=== PATIENT | female | born 1935 | race Caucasian/White ===

== ENCOUNTER 2016-08-22 12:45 | Outpatient (CLI) | payer MEDICARE, OTHER | END 2016-08-22 12:46 | disposition home or self-care (01) | DX: R13.10 Dysphagia, unspecified (principal); I10 Essential (primary) hypertension; E03.9 Hypothyroidism, unspecified ==

== ENCOUNTER 2016-09-06 08:24 | Outpatient (CLI) | payer MEDICARE, OTHER ==
[2016-09-06] MEDS ORDERED: BARIUM SULFATE 176 GM BOTTLE PO ONE (11:37)
[2016-09-06] MEDS ORDERED: BARIUM SULFATE 135 ML BOTTLE PO ONE (11:37)
== END 2016-09-06 08:25 | disposition home or self-care (01) ==
DX: K22.8 Other specified diseases of esophagus (principal); K44.9 Diaphragmatic hernia without obstruction or gangrene; K21.9 Gastro-esophageal reflux disease without esophagitis
CPT/HCPCS: 74246; A9270

== ENCOUNTER 2016-10-20 13:20 | Outpatient (CLI) | payer MEDICARE, OTHER | END 2016-10-20 13:21 | disposition home or self-care (01) | DX: Z12.31 Encounter for screening mammogram for malignant neoplasm of breast (principal) ==

== ENCOUNTER 2016-10-20 13:24 | Outpatient (CLI) | payer MEDICARE, OTHER | END 2016-10-20 13:25 | disposition home or self-care (01) | DX: M85.88 Other specified disorders of bone density and structure, other site (principal) ==

== ENCOUNTER 2017-01-23 14:46 | Outpatient (CLI) | payer MEDICARE, OTHER ==
[2017-01-23 20:54] LABS: ALBUMIN/GLOBULIN RATIO 1.3 (1.0-2.2); BILIRUBIN,TOTAL 0.6 mg/dL (0.2-1.0); CALCIUM 8.5 mg/dL (8.5-10.3); CREATININE 0.7 mg/dL (0.4-1.0); POTASSIUM 4.1 mmol/L (3.5-5.0); TOTAL PROTEIN 6.6 g/dL (6.7-8.2)
== END 2017-01-23 14:47 | disposition home or self-care (01) ==
LOC: LAB.WCP 14:46
PROVIDERS: ATTEND Family Medicine
DX: F03.90 Unspecified dementia, unspecified severity, without behavioral disturbance, psychotic disturbance, mood disturbance, and anxiety (principal); I10 Essential (primary) hypertension; F32.9 Major depressive disorder, single episode, unspecified; E03.9 Hypothyroidism, unspecified
CPT/HCPCS: 36415; 80053; 84443

== ENCOUNTER 2017-07-07 14:10 | Outpatient (CLI) | payer MEDICARE, OTHER ==
[2017-07-07 18:46] LABS: BASOPHILS # (AUTO) 0.1 10^3/uL (0.0-0.1); EOSINOPHILS # (AUTO) 0.2 10^3/uL (0.0-0.7); HCT - HEMATOCRIT 40.6 % (37.0-47.0); HGB - HEMOGLOBIN 13.5 g/dL (12.0-16.0); LYMPHOCYTES # (AUTO) 2.2 10^3/uL (1.5-3.5); LYMPHOCYTES % (AUTO) 42.1 %; MEAN CORPUSCULAR HEMOGLOBIN 30.6 pg (27.0-31.0); MEAN CORPUSCULAR HGB CONC 33.3 g/dL (32.0-36.0); MEAN CORPUSCULAR VOLUME 91.8 fL (81.0-99.0); MEAN PLATELET VOLUME 8.9 fL (7.9-10.8); MONOCYTES # (AUTO) 0.5 10^3/uL (0.0-1.0); MONOCYTES % (AUTO) 8.9 %; NEUTROPHILS # (AUTO) 2.2 10^3/uL (1.5-6.6); RED BLOOD COUNT 4.42 10^6/uL (4.20-5.40); RED CELL DISTRIBUTION WIDTH 13.2 % (12.0-15.0); UNCORRECTED WHITE BLOOD COUNT 5.1 x10^3/uL; WHITE BLOOD COUNT 5.1 x10^3/uL (4.8-10.8)
[2017-07-07 19:05] LABS: ALBUMIN/GLOBULIN RATIO 1.2 (1.0-2.2); BILIRUBIN,TOTAL 0.6 mg/dL (0.2-1.0); BUN - BLOOD UREA NITROGEN 17 mg/dL (6-20); CALCIUM 8.8 mg/dL (8.5-10.3); CARBON DIOXIDE - CO2 26 mmol/L (21-32); CHLORIDE 106 mmol/L (101-111); CHOL/HDL RATIO 3.3 (<4.4); CHOLESTEROL 195 mg/dL; CREATININE 0.8 mg/dL (0.4-1.0); GFR - MDRD 69 (>89); GLUCOSE 93 mg/dL (70-100); HDL CHOLESTEROL 59 mg/dL; LDL/HDL RATIO 1.7 (<4.4); POTASSIUM 4.3 mmol/L (3.5-5.0); SODIUM 139 mmol/L (135-145); TOTAL PROTEIN 6.7 g/dL (6.7-8.2); TRIGLYCERIDES 192 mg/dL; VLDL CHOLESTEROL 38 mg/dL
== END 2017-07-07 14:11 | disposition home or self-care (01) ==
LOC: LAB.WCP 14:10
PROVIDERS: ATTEND Family Medicine
DX: I10 Essential (primary) hypertension (principal); Z13.220 Encounter for screening for lipoid disorders; E03.9 Hypothyroidism, unspecified
CPT/HCPCS: 36415; 80053; 80061; 84443; 85025

== ENCOUNTER 2017-10-25 09:42 | Outpatient (CLI) | payer MEDICARE, OTHER ==
--- NOTE | 2017-10-26 09:39 | DEXA Report ---
DEXA SCAN: 10/25/2017 CLINICAL INDICATION: Postmenopausal. TECHNIQUE: Dual energy x-ray absorptiometry (DXA) was performed on a [employer] system. Regions measured are the AP spine, femoral neck, and, if needed, forearm. COMPARISON: 10/20/2016. In accordance with the International Society for Clinical Densitometry (ISCD) guidelines, data from previous exams may be reanalyzed using current recommendations and techniques. This is done to allow a more accurate basis for comparison with the current study. FINDINGS: The data for the lumbar spine is as follows: REGION BMD (g/cm/cm) T-SCORE Z-SCORE L1 1.386 2.1 3.6 L2 1.251 1.3 2.7 L3 1.228 0.2 1.7 L4 1.738 4.5 5.9 TOTAL 1.430 2.1 3.5 NOTE: All evaluable vertebrae are used for classification. The data for the hip is as follows: REGION BMD (g/cm/cm) T-SCORE Z-SCORE Neck 0.804 -1.7 0.3 TOTAL 0.826 -1.4 0.4 NOTE: The femoral neck or total proximal femur, whichever is lowest, is used for classification. DEXA RESULTS SUMMARY: Spine SCAN DATE AGE BMD T-SCORE BMD CHANGE VS BASELINE BMD CHANGE VS PREVIOUS 10/25/[age] 1.430 --- -0.075* -5.0* 10/20/2016 [age] 1[age]505 --- --- --- * Denotes significant change at the 95% confidence level. Denotes dissimilar scan types or analysis methods. DEXA RESULTS SUMMARY: Total hip SCAN DATE AGE BMD T-SCORE BMD CHANGE VS BASELINE BMD CHANGE VS PREVIOUS 10/25/2017 82.2 0.826 --- 0.020 2.5 10/20/2016 [age] 0.806 --- --- --- * Denotes significant change at the 95% confidence level. Denotes dissimilar scan types or analysis methods. IMPRESSION 1. THE WHO CLASSIFICATION BASED ON THE INTERNATIONAL REFERENCE STANDARD IS OSTEOPENIA. THE FRACTURE RISK IS INCREASED. 2. THERE HAS BEEN STATISTICALLY SIGNIFICANT INTERVAL DECREASE IN BONE MINERAL DENSITY OF THE LUMBAR SPINE FROM 10/20/2016. NO STATISTICALLY SIGNIFICANT INTERVAL CHANGE IN BONE MINERAL DENSITY OF THE LEFT HIP. RECOMMENDATION: Patients with diagnosis of osteoporosis or osteopenia should have regular bone mineral density assessment. For those eligible for Medicare, routine testing is allowed once every 2 years. Testing frequency can be increased for patients who have rapidly progressing disease or for those who are receiving medical therapy to restore bone mass. COMMENT: World Health Organization (WHO) definitions for osteoporosis and osteopenia: NORMAL BMD: T-score at 1.0 or higher, fracture risk is low. OSTEOPENIA BMD: T-score between 1.0 and -2.5, fracture risk is increased. OSTEOPOROSIS BMD: T-score at 2.5 or lower, fracture risk high. National Osteoporosis Foundation recommends: 1. Obtain adequate dietary calcium (at least 1200 mg per day) and vitamin D (400 -800 international units per day). 2. Participate, as appropriate, in regular weightbearing and muscle- strengthening exercise. 3. Avoid tobacco use and reduce alcohol and caffeine intake. 4. For more detailed information see the website at www.NOF.org. MTDD
== END 2017-10-25 09:43 | disposition home or self-care (01) ==
LOC: DI 09:42
PROVIDERS: ATTEND Family Medicine
DX: M85.88 Other specified disorders of bone density and structure, other site (principal)
CPT/HCPCS: 77080

== ENCOUNTER 2017-10-25 09:42 | Outpatient (CLI) | payer MEDICARE, OTHER ==
--- NOTE | 2017-10-26 13:29 | Mammography Report ---
DIGITAL SCREENING MAMMOGRAM: 10/25/2017 CLINICAL INDICATION: An 82-year-old with history of late childbearing for screening. COMPARISON: 09/2016, 08/2015, 06/2014, 05/2013, 04/2012, 04/2011, 04/2010. TECHNIQUE: Routine CC and MLO projections were obtained of the breasts. FINDINGS: The breasts demonstrate scattered fibroglandular densities bilaterally. Coarse and punctate, typically benign calcifications are present. No suspicious masses, clustered microcalcifications, or regions of architectural distortion are identified. IMPRESSION: BENIGN FINDINGS. RECOMMENDATION: Routine annual screening unless otherwise clinically indicated. BIRADS CATEGORY 2 - BENIGN FINDINGS. STANDARD QUALIFYING STATEMENTS: 1. This examination was reviewed with the aid of Computer-Aided Detection (CAD). 2. A negative or benign imaging report should not delay biopsy if clinically suspicious findings are present. Consider surgical consultation if warranted. More than 5% of cancers are not identified by imaging. 3. Dense breasts may obscure an underlying neoplasm. TD: 10/26/2017 13:28
== END 2017-10-25 09:43 | disposition home or self-care (01) ==
LOC: DI 09:42
PROVIDERS: ATTEND Family Medicine
DX: Z12.31 Encounter for screening mammogram for malignant neoplasm of breast (principal)
CPT/HCPCS: 77067

== ENCOUNTER 2018-03-06 08:00 | Outpatient (CLI) | payer MEDICARE, OTHER ==
[2018-03-06 19:17] LABS: ALBUMIN 3.5 g/dL (3.2-5.5); ALBUMIN/GLOBULIN RATIO 1.1 (1.0-2.2); ALKALINE PHOSPHATASE 57 IU/L (42-121); ALT ALANINE AMINOTRANSFERASE 21 IU/L (10-60); AST ASPARTATE AMINOTRANSFERASE 26 IU/L (10-42); BILIRUBIN,TOTAL 0.8 mg/dL (0.2-1.0); BUN - BLOOD UREA NITROGEN 15 mg/dL (6-20); CALCIUM 8.7 mg/dL (8.5-10.3); CARBON DIOXIDE - CO2 28 mmol/L (21-32); CHLORIDE 103 mmol/L (101-111); CHOL/HDL RATIO 3.5 (<4.4); CHOLESTEROL 173 mg/dL; CREATININE 0.7 mg/dL (0.4-1.0); GFR - MDRD 80 (>89); GLUCOSE 95 mg/dL (70-100); HDL CHOLESTEROL 50 mg/dL; LDL CHOLESTEROL,CALCULATED 99 mg/dL; SODIUM 137 mmol/L (135-145); TOTAL PROTEIN 6.7 g/dL (6.7-8.2); VLDL CHOLESTEROL 24 mg/dL
== END 2018-03-06 08:01 | disposition home or self-care (01) ==
LOC: LAB.WCP 08:00
PROVIDERS: ATTEND Family Medicine
DX: I10 Essential (primary) hypertension (principal); E03.9 Hypothyroidism, unspecified; Z13.220 Encounter for screening for lipoid disorders
CPT/HCPCS: 36415; 80053; 80061; 83721; 84443

== ENCOUNTER 2018-08-14 13:11 | Outpatient (CLI) | payer MEDICARE, OTHER | END 2018-08-14 13:12 | disposition home or self-care (01) | LOC: RT 13:11 | PROVIDERS: ATTEND Family Medicine | DX: R05 Cough (principal); J45.909 Unspecified asthma, uncomplicated | CPT/HCPCS: 94010 ==

== ENCOUNTER 2018-08-20 13:07 | Outpatient (CLI) | payer MEDICARE, OTHER | END 2018-08-20 13:08 | disposition home or self-care (01) | LOC: SC 13:07 | PROVIDERS: ATTEND Nurse Practitioner Family | DX: G47.33 Obstructive sleep apnea (adult) (pediatric) (principal) | CPT/HCPCS: 99214; G0463; 99212 ==

== ENCOUNTER 2018-08-22 08:00 | Outpatient (CLI) | payer MEDICARE, OTHER ==
[2018-08-22 12:15] LABS: BASOPHILS # (AUTO) 0.1 10^3/uL (0.0-0.1); BASOPHILS % (AUTO) 1.4 %; EOSINOPHILS # (AUTO) 0.2 10^3/uL (0.0-0.7); EOSINOPHILS % (AUTO) 3.3 %; HGB - HEMOGLOBIN 13.1 g/dL (12.0-16.0); LYMPHOCYTES # (AUTO) 1.7 10^3/uL (1.5-3.5); LYMPHOCYTES % (AUTO) 30.1 %; MEAN CORPUSCULAR HEMOGLOBIN 30.8 pg (27.0-31.0); MEAN CORPUSCULAR VOLUME 90.7 fL (81.0-99.0); MEAN PLATELET VOLUME 8.5 fL (7.9-10.8); MONOCYTES # (AUTO) 0.6 10^3/uL (0.0-1.0); MONOCYTES % (AUTO) 9.7 %; NEUTROPHILS # (AUTO) 3.2 10^3/uL (1.5-6.6); NEUTROPHILS % (AUTO) 55.5 %; PLT - PLATELET COUNT 304 10^3/uL (130-450); RED BLOOD COUNT 4.26 10^6/uL (4.20-5.40); RED CELL DISTRIBUTION WIDTH 13.6 % (12.0-15.0); WHITE BLOOD COUNT 5.8 x10^3/uL (4.8-10.8)
[2018-08-22 13:05] LABS: ALBUMIN 3.6 g/dL (3.2-5.5); ALBUMIN/GLOBULIN RATIO 1.1 (1.0-2.2); ALKALINE PHOSPHATASE 66 IU/L (42-121); ALT ALANINE AMINOTRANSFERASE 17 IU/L (10-60); AST ASPARTATE AMINOTRANSFERASE 25 IU/L (10-42); BILIRUBIN,TOTAL 0.5 mg/dL (0.2-1.0); BUN - BLOOD UREA NITROGEN 14 mg/dL (6-20); CALCIUM 8.8 mg/dL (8.5-10.3); CARBON DIOXIDE - CO2 26 mmol/L (21-32); CHLORIDE 105 mmol/L (101-111); CHOL/HDL RATIO 2.8 (<4.4); CHOLESTEROL 155 mg/dL; CREATININE 0.9 mg/dL (0.4-1.0); GFR - MDRD 60 (>89); GLUCOSE 103 mg/dL (70-100); HDL CHOLESTEROL 56 mg/dL; LDL CHOLESTEROL,CALCULATED 78 mg/dL; LDL/HDL RATIO 1.4 (<4.4); SODIUM 140 mmol/L (135-145); TOTAL PROTEIN 6.8 g/dL (6.7-8.2); VLDL CHOLESTEROL 21 mg/dL
== END 2018-08-22 23:59 | disposition home or self-care (01) ==
LOC: LAB.WCP 08:00
PROVIDERS: ATTEND Family Medicine
DX: R25.2 Cramp and spasm (principal); I10 Essential (primary) hypertension; Z13.220 Encounter for screening for lipoid disorders; F03.90 Unspecified dementia, unspecified severity, without behavioral disturbance, psychotic disturbance, mood disturbance, and anxiety; F32.9 Major depressive disorder, single episode, unspecified; E03.9 Hypothyroidism, unspecified
CPT/HCPCS: 36415; 80053; 80061; 83721; 84443; 85025

== ENCOUNTER 2018-09-22 11:11 | Outpatient (CLI) | payer MEDICARE, OTHER | END 2018-09-22 11:12 | disposition home or self-care (01) | LOC: DI 11:11 | PROVIDERS: ATTEND Family Medicine | DX: R01.1 Cardiac murmur, unspecified (principal); I34.0 Nonrheumatic mitral (valve) insufficiency | CPT/HCPCS: 93306 ==

== ENCOUNTER 2019-01-03 15:43 | Outpatient (CLI) | payer MEDICARE, OTHER ==
--- NOTE | 2019-01-04 08:42 | Mammography Report ---
Reason: SCREENING MAMMO Procedure Date: 01/03/2019 Accession Number: [id number] / [id number] Procedure: ANIYA - Screening Mammo w/Manolo CPT Code: FULL RESULT: EXAM: Screening Mammo w/Manolo DATE: 01/03/2019 4:06 PM CLINICAL HISTORY: Screening encounter. History of late childbearing. History of endometrial cancer. TECHNIQUE: (B) - Bilateral CC and MLO views were obtained. COMPARISON: 10/25/2017 through 06/24/2013. PARENCHYMAL PATTERN: (A) - The breast(s) demonstrate(s) scattered fibroglandular densities. FINDINGS: There are coarse typically benign calcifications. There are no suspicious masses, calcifications, or areas of distortion. IMPRESSION: Benign findings. BI-RADS category 2. RECOMMENDATION: (ANNUAL) - Recommend routine annual screening mammography. BI-RADS CATEGORY: (2) - Benign Findings. STANDARD QUALIFYING STATEMENTS: 1. This examination was not reviewed with the aid of Computer-Aided Detection (CAD). 2. A negative or benign imaging report should not preclude biopsy if clinically suspicious findings are present. 3. Dense breasts may obscure an underlying neoplasm. 4. This examination was reviewed with the aid of 3D breast imaging (tomosynthesis).
== END 2019-01-03 15:44 | disposition home or self-care (01) ==
LOC: DI 15:43
DX: Z12.31 Encounter for screening mammogram for malignant neoplasm of breast (principal)
CPT/HCPCS: 77063; 77067

== ENCOUNTER 2020-07-20 08:00 | Outpatient (CLI) | payer MEDICARE, OTHER ==
[2020-07-20 18:07] LABS: BASOPHILS # (AUTO) 0.1 10^3/uL (0.0-0.1); BASOPHILS % (AUTO) 1.5 %; EOSINOPHILS # (AUTO) 0.3 10^3/uL (0.0-0.7); EOSINOPHILS % (AUTO) 5.3 %; LYMPHOCYTES # (AUTO) 1.8 10^3/uL (1.5-3.5); LYMPHOCYTES % (AUTO) 30.7 %; MEAN CORPUSCULAR HEMOGLOBIN 31.1 pg (27.0-31.0); MEAN CORPUSCULAR HGB CONC 32.1 g/dL (32.0-36.0); MEAN CORPUSCULAR VOLUME 96.9 fL (81.0-99.0); MEAN PLATELET VOLUME 10.2 fL (7.9-10.8); MONOCYTES # (AUTO) 0.5 10^3/uL (0.0-1.0); NEUTROPHILS # (AUTO) 3.2 10^3/uL (1.5-6.6); PLT - PLATELET COUNT 260 10^3/uL (130-450); RED BLOOD COUNT 4.18 10^6/uL (4.20-5.40); RED CELL DISTRIBUTION WIDTH 12.5 % (12.0-15.0); WHITE BLOOD COUNT 5.9 x10^3/uL (4.8-10.8)
[2020-07-20 18:20] LABS: ALBUMIN 3.8 g/dL (3.2-5.5); ALBUMIN/GLOBULIN RATIO 1.3 (1.0-2.2); BILIRUBIN,TOTAL 0.7 mg/dL (0.2-1.0); CREATININE 0.8 mg/dL (0.4-1.0); TOTAL PROTEIN 6.7 g/dL (6.7-8.2)
== END 2020-07-20 23:59 | disposition home or self-care (01) ==
LOC: LAB.WCP 08:00
PROVIDERS: ATTEND Family Medicine
DX: I10 Essential (primary) hypertension (principal); E03.9 Hypothyroidism, unspecified
CPT/HCPCS: 36415; 80053; 84443; 85025

== ENCOUNTER 2021-01-18 08:00 | Outpatient (CLI) | payer MEDICARE, OTHER ==
[2021-01-18 18:04] LABS: BASOPHILS # (AUTO) 0.1 10^3/uL (0.0-0.1); BASOPHILS % (AUTO) 1.4 %; EOSINOPHILS # (AUTO) 0.3 10^3/uL (0.0-0.7); EOSINOPHILS % (AUTO) 5.1 %; HCT - HEMATOCRIT 40.9 % (37.0-47.0); HGB - HEMOGLOBIN 13.2 g/dL (12.0-16.0); LYMPHOCYTES # (AUTO) 1.9 10^3/uL (1.5-3.5); LYMPHOCYTES % (AUTO) 32.4 %; MEAN CORPUSCULAR HEMOGLOBIN 31.4 pg (27.0-31.0); MEAN CORPUSCULAR HGB CONC 32.3 g/dL (32.0-36.0); MEAN CORPUSCULAR VOLUME 97.1 fL (81.0-99.0); MEAN PLATELET VOLUME 10.7 fL (7.9-10.8); MONOCYTES # (AUTO) 0.6 10^3/uL (0.0-1.0); MONOCYTES % (AUTO) 10.1 %; NEUTROPHILS % (AUTO) 50.7 %; PLT - PLATELET COUNT 280 10^3/uL (130-450); RED BLOOD COUNT 4.21 10^6/uL (4.20-5.40); RED CELL DISTRIBUTION WIDTH 12.6 % (12.0-15.0); WHITE BLOOD COUNT 5.8 x10^3/uL (4.8-10.8)
[2021-01-18 18:23] LABS: ALBUMIN/GLOBULIN RATIO 1.4 (1.0-2.2); BILIRUBIN,TOTAL 0.7 mg/dL (0.2-1.0); CALCIUM 8.9 mg/dL (8.5-10.3); POTASSIUM 4.4 mmol/L (3.5-5.0); TOTAL PROTEIN 6.9 g/dL (6.7-8.2)
[2021-01-18 18:36] LABS: THYROID STIMULATING HORMONE 0.63 uIU/mL (0.34-5.60)
== END 2021-01-18 23:59 | disposition home or self-care (01) ==
LOC: LAB.WCP 08:00
PROVIDERS: ATTEND Family Medicine
DX: R19.4 Change in bowel habit (principal); E03.9 Hypothyroidism, unspecified
CPT/HCPCS: 36415; 80053; 83690; 84443; 85025

== ENCOUNTER 2021-09-15 09:11 | Outpatient (CLI) | payer MEDICARE, OTHER ==
[2021-09-15 09:32] LABS: BASOPHILS # (AUTO) 0.1 10^3/uL (0.0-0.1); BASOPHILS % (AUTO) 1.3 %; EOSINOPHILS # (AUTO) 0.3 10^3/uL (0.0-0.7); EOSINOPHILS % (AUTO) 5.9 %; HCT - HEMATOCRIT 37.5 % (37.0-47.0); HGB - HEMOGLOBIN 12.3 g/dL (12.0-16.0); LYMPHOCYTES # (AUTO) 1.6 10^3/uL (1.5-3.5); LYMPHOCYTES % (AUTO) 34.3 %; MEAN CORPUSCULAR HEMOGLOBIN 31.4 pg (27.0-31.0); MEAN CORPUSCULAR HGB CONC 32.8 g/dL (32.0-36.0); MEAN CORPUSCULAR VOLUME 95.7 fL (81.0-99.0); MEAN PLATELET VOLUME 9.4 fL (7.9-10.8); MONOCYTES # (AUTO) 0.4 10^3/uL (0.0-1.0); NEUTROPHILS # (AUTO) 2.4 10^3/uL (1.5-6.6); NEUTROPHILS % (AUTO) 49.1 %; PLT - PLATELET COUNT 238 10^3/uL (130-450); RED BLOOD COUNT 3.92 10^6/uL (4.20-5.40); RED CELL DISTRIBUTION WIDTH 12.5 % (12.0-15.0); WHITE BLOOD COUNT 4.8 x10^3/uL (4.8-10.8)
[2021-09-15 10:02] LABS: THYROID STIMULATING HORMONE 0.52 uIU/mL (0.34-5.60)
[2021-09-15 10:04] LABS: ALBUMIN 3.4 g/dL (3.2-5.5); ALBUMIN/GLOBULIN RATIO 1.3 (1.0-2.2); ALKALINE PHOSPHATASE 58 IU/L (42-121); ALT ALANINE AMINOTRANSFERASE 15 IU/L (10-60); AST ASPARTATE AMINOTRANSFERASE 18 IU/L (10-42); BUN - BLOOD UREA NITROGEN 16 mg/dL (6-20); CALCIUM 8.3 mg/dL (8.5-10.3); CARBON DIOXIDE - CO2 25 mmol/L (21-32); CHLORIDE 105 mmol/L (101-111); CHOL/HDL RATIO 3.8 (<4.4); CHOLESTEROL 173 mg/dL; CREATININE 0.9 mg/dL (0.4-1.0); GFR - MDRD 59 (>89); GLUCOSE 106 mg/dL (70-100); HDL CHOLESTEROL 45 mg/dL; LDL CHOLESTEROL,CALCULATED 106 mg/dL; LDL/HDL RATIO 2.4 (<4.4); POTASSIUM 3.9 mmol/L (3.5-5.0); SODIUM 138 mmol/L (135-145); TRIGLYCERIDES 112 mg/dL; VLDL CHOLESTEROL 22 mg/dL
== END 2021-09-15 09:12 | disposition home or self-care (01) ==
LOC: LAB 09:11
PROVIDERS: ATTEND Family Medicine
DX: I10 Essential (primary) hypertension (principal); E03.9 Hypothyroidism, unspecified; Z13.220 Encounter for screening for lipoid disorders
CPT/HCPCS: 36415; 80053; 80061; 83721; 84443; 85025

== ENCOUNTER 2022-08-11 08:00 | Outpatient (CLI) | payer MEDICARE, OTHER ==
[2022-08-11 16:16] LABS: BASOPHILS # (AUTO) 0.1 10^3/uL (0.0-0.1); BASOPHILS % (AUTO) 1.6 %; EOSINOPHILS # (AUTO) 0.3 10^3/uL (0.0-0.7); EOSINOPHILS % (AUTO) 5.3 %; HCT - HEMATOCRIT 41.1 % (37.0-47.0); HGB - HEMOGLOBIN 13.5 g/dL (12.0-16.0); LYMPHOCYTES # (AUTO) 1.5 10^3/uL (1.5-3.5); LYMPHOCYTES % (AUTO) 30.3 %; MEAN CORPUSCULAR HEMOGLOBIN 31.1 pg (27.0-31.0); MEAN CORPUSCULAR HGB CONC 32.8 g/dL (32.0-36.0); MEAN CORPUSCULAR VOLUME 94.7 fL (81.0-99.0); MEAN PLATELET VOLUME 10.4 fL (7.9-10.8); MONOCYTES # (AUTO) 0.5 10^3/uL (0.0-1.0); MONOCYTES % (AUTO) 9.3 %; NEUTROPHILS # (AUTO) 2.7 10^3/uL (1.5-6.6); NEUTROPHILS % (AUTO) 53.3 %; PLT - PLATELET COUNT 270 10^3/uL (130-450); RED BLOOD COUNT 4.34 10^6/uL (4.20-5.40); RED CELL DISTRIBUTION WIDTH 12.5 % (12.0-15.0); WHITE BLOOD COUNT 5.1 x10^3/uL (4.8-10.8)
[2022-08-11 16:19] LABS: BILIRUBIN,URINE NEGATIVE (NEGATIVE); GLUCOSE, URINE (UA) NEGATIVE (NEGATIVE); KETONES,URINE (UA) NEGATIVE (NEGATIVE); LEUKOCYTE ESTERASE, URINE NEGATIVE (NEGATIVE); NITRITE,URINE NEGATIVE (NEGATIVE); OCCULT BLOOD,URINE NEGATIVE (NEGATIVE); PH,URINE 5.5 PH (5.0-7.5); PROTEIN,URINE NEGATIVE (NEGATIVE); UROBILINOGEN,URINE 0.2 (NORMAL) E.U./dL (NORMAL)
[2022-08-11 16:22] LABS: CLARITY,URINE CLOUDY (CLEAR)
[2022-08-11 16:30] LABS: ALBUMIN 3.7 g/dL (3.2-5.5); ALBUMIN/GLOBULIN RATIO 1.3 (1.0-2.2); ALKALINE PHOSPHATASE 58 IU/L (42-121); ALT ALANINE AMINOTRANSFERASE 16 IU/L (10-60); AST ASPARTATE AMINOTRANSFERASE 20 IU/L (10-42); BILIRUBIN,TOTAL 0.8 mg/dL (0.2-1.0); BUN - BLOOD UREA NITROGEN 14 mg/dL (6-20); CALCIUM 8.8 mg/dL (8.5-10.3); CARBON DIOXIDE - CO2 27 mmol/L (21-32); CHLORIDE 102 mmol/L (101-111); CHOL/HDL RATIO 3.4 (<4.4); CHOLESTEROL 200 mg/dL; CREATININE 0.8 mg/dL (0.4-1.0); GFR - MDRD 68 (>89); GLUCOSE 95 mg/dL (70-100); HDL CHOLESTEROL 59 mg/dL; LDL CHOLESTEROL,CALCULATED 117 mg/dL; MAGNESIUM 1.8 mg/dL (1.7-2.8); POTASSIUM 3.6 mmol/L (3.5-5.0); SODIUM 136 mmol/L (135-145); TOTAL PROTEIN 6.6 g/dL (6.7-8.2); TRIGLYCERIDES 120 mg/dL; VLDL CHOLESTEROL 24 mg/dL
[2022-08-11 16:44] LABS: AMORPHOUS SEDIMENT,UR Marked /LPF; BACTERIA,URINE Few /HPF (None Seen); RBC,URINE None Seen /HPF (0-5); SQUAMOUS EPITHELIAL CELL,UR FEW Squamous (<= Few); WBC,URINE 0-3 /HPF (0-5)
[2022-08-11 20:21] LABS: ESTIMATED AVERAGE GLUCOSE 120 mg/dL (70-100); HEMOGLOBIN A1c% 5.8 % (4.27-6.07)
== END 2022-08-11 23:59 | disposition home or self-care (01) ==
LOC: LAB.R 08:00
PROVIDERS: ATTEND Internal Medicine
DX: Z00.00 Encounter for general adult medical examination without abnormal findings (principal); I10 Essential (primary) hypertension; R19.4 Change in bowel habit; R25.2 Cramp and spasm; R73.03 Prediabetes; C54.1 Malignant neoplasm of endometrium; H40.9 Unspecified glaucoma; H91.90 Unspecified hearing loss, unspecified ear; K44.9 Diaphragmatic hernia without obstruction or gangrene; E03.9 Hypothyroidism, unspecified; K58.9 Irritable bowel syndrome, unspecified; G47.33 Obstructive sleep apnea (adult) (pediatric); M85.80 Other specified disorders of bone density and structure, unspecified site; M25.519 Pain in unspecified shoulder; Z79.899 Other long term (current) drug therapy; M65.30 Trigger finger, unspecified finger; R32 Unspecified urinary incontinence
CPT/HCPCS: 80053; 80061; 81001; 81003; 83036; 83721; 83735; 84443; 85025; 87086

== ENCOUNTER 2022-08-24 13:37 | Outpatient (CLI) | payer MEDICARE, OTHER ==
--- NOTE | 2022-08-26 11:45 | Mammography Report ---
BILATERAL DIGITAL SCREENING MAMMOGRAM 3D/2D: 08/24/2022 CLINICAL: Routine screening. Comparison is made to exams dated: 10/25/2017 mammogram, 10/20/2016 mammogram, 09/08/2015 mammogram, and 07/18/2014 mammogram - [facility]. There are scattered areas of fibroglandular density in both breasts (category b / 25%-50% glandular t issue). No significant masses, calcifications, or other findings are seen in either breast. There has been no significant interval change. IMPRESSION: NEGATIVE There is no mammographic evidence of malignancy. A 1 year screening mammogram is recommended. This exam was interpreted at Station ID: [id number]. NOTE: For mammograms, a report in lay terms will be sent to the patient. Approximately 15% of breast malignancies will not be visualized mammographically. In the management of a palpable breast mass, a negative mammogram must not discourage biopsy of a clinically suspicious lesion. Electronically Signed By: Herman osuna/león:08/25/2022 09:44:32 ACR BI-RADS Category 1: Negative 3341F PARENCHYMAL PATTERN: (A) - The breast(s) demonstrate(s) scattered fibroglandular densities. BI-RADS CATEGORY: (1) - 1 RECOMMENDATION: (ANNUAL) - Recommend routine annual screening mammography. [id number] 1 year screening LATERALITY: (B)
== END 2022-08-24 13:38 | disposition home or self-care (01) ==
LOC: DI 13:37
PROVIDERS: ATTEND Internal Medicine
DX: Z12.31 Encounter for screening mammogram for malignant neoplasm of breast (principal)

== ENCOUNTER 2022-09-16 09:46 | Outpatient (CLI) | payer MEDICARE, OTHER ==
--- NOTE | 2022-09-16 13:15 | DEXA Report ---
PROCEDURE: Dexa Spine and/or Hip INDICATIONS: OSTEOPENIA TECHNIQUE: Dual energy x-ray absorptiometry (DXA) was performed on a [employer] System. Regions measur ed are the AP Spine, femoral neck, and if needed forearm. COMPARISON: 10/25/2017 FINDINGS: Lumbar Spine: Bone Mineral Density 1.404 g/cm/cm,T score 1.9, normal. Previous T score 2.1. No significant jeffries e in bone mineral density since the prior exam. Left Femoral Neck: Bone Mineral Density 0.806 g/cm/cm, T score -1.7, osteopenia. Previous T score -1.7. Left Hip: Bone Mineral Density 0.858 g/cm/cm,T score -1.2, osteopenia. No significant change in bone mineral d ensity since the prior exam. Left forearm: Bone Mineral Density 0.752 g/cm/cm, T score -1.4, osteopenia. Forearm not evaluated on the prior exam . (T score greater or equal to -1.0: NORMAL) (T score from -1.1 to -2.4: OSTEOPENIA) (T score less than or equal to -2.5 to: OSTEOPOROSIS) Impression: Osteopenia. Patients with diagnosis of osteoporosis or osteopenia should have regular bone mineral density assess ment. For those eligible for Medicare, routine testing is allowed once every 2 years. Testing frequ ency can be increased for patients who have rapidly progressing disease or for those who are receivin g medical therapy to restore bone mass. Reviewed by: Marcial Daniel MD on 09/16/2022 1:14 PM PST Approved by: Marcial Daniel MD on 09/16/2022 1:14 PM PST Station ID: [id number]
== END 2022-09-16 09:47 | disposition home or self-care (01) ==
LOC: DI 09:46
PROVIDERS: ATTEND Internal Medicine
DX: M85.89 Other specified disorders of bone density and structure, multiple sites (principal)

== ENCOUNTER 2023-03-20 12:52 | Outpatient (CLI) | payer MEDICARE, OTHER ==
--- NOTE | 2023-03-20 16:35 | XRAY Report ---
PROCEDURE: Hip w/Pelvis 2-3V RT INDICATIONS: PAIN IN RIGHT HIP TECHNIQUE: AP pelvis with lateral view(s) of the right hip(s). COMPARISON: None. FINDINGS: Bones: No fractures or dislocations. No suspicious bony lesions. Moderate bilateral degenerative hip joint space narrowing, right greater than left. Areas of subchondral sclerosis are present. Degen erative changes are present within the lower lumbar spine. No erosions. Soft tissues: No suspicious soft tissue calcifications or masses. 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 Reviewed by: Tamia Sloan MD on 03/20/2023 4:33 PM PDT Approved by: Tamia Sloan MD on 03/20/2023 4:33 PM PDT Station ID: [id number]
== END 2023-03-20 12:53 | disposition home or self-care (01) ==
LOC: DI 12:52
PROVIDERS: ATTEND Internal Medicine
DX: M16.0 Bilateral primary osteoarthritis of hip (principal)

== ENCOUNTER 2023-08-16 09:39 | Outpatient (CLI) | payer MEDICARE | END 2023-08-16 09:40 | disposition critical access hospital (66) | LOC: EMS 09:39 | DX: S69.91XA Unspecified injury of right wrist, hand and finger(s), initial encounter (principal); W00.0XXA Fall on same level due to ice and snow, initial encounter; Y92.009 Unspecified place in unspecified non-institutional (private) residence as the place of occurrence of the external cause | CPT/HCPCS: A0425; A0429 ==

== ENCOUNTER 2023-08-22 08:00 | Outpatient (CLI) | payer MEDICARE ==
--- NOTE | 2023-08-22 15:59 | XRAY Report ---
PROCEDURE: Wrist 3 View LT INDICATIONS: LEFT WRIST FRACTURE TECHNIQUE: 3 views of the wrist were acquired. COMPARISON: 08/16/2023. FINDINGS: Bones: There is interval cast placement over left wrist. Comminuted and impacted intra-articular fra cture of distal radius is seen with dorsal displacement at fracture site unchanged from prior study. Ulnar styloid tip fracture is also seen and unchanged. No new fracture or dislocation. Wrist joint os teoarthritic changes. No suspicious bony lesions. Soft tissues: No suspicious soft tissue calcifications or masses. IMPRESSION: Stable appearance of comminuted, impacted and displaced intra-articular fracture of distal radius and nondisplaced fracture of ulnar styloid. Cast placement over left wrist. No new fracture or dislocati on. Reviewed by: Vinnie Phan MD on 08/22/2023 3:58 PM PST Approved by: Vinnie Phan MD on 08/22/2023 3:58 PM PST Station ID: [id number]
== END 2023-08-22 23:59 | disposition home or self-care (01) ==
LOC: DI.WOS 08:00
PROVIDERS: ATTEND Orthopaedic Surgery
DX: S52.572D Other intraarticular fracture of lower end of left radius, subsequent encounter for closed fracture with routine healing (principal); S52.615D Nondisplaced fracture of left ulna styloid process, subsequent encounter for closed fracture with routine healing

== ENCOUNTER 2023-09-07 08:00 | Outpatient (CLI) | payer MEDICARE, OTHER ==
--- NOTE | 2023-09-07 15:17 | XRAY Report ---
PROCEDURE: Wrist 3 View RT INDICATIONS: RIGHT WRIST FRACTURE TECHNIQUE: 3 views of the wrist were acquired. COMPARISON: 08/22/2023. FINDINGS: Bones: Stable appearance of comminuted, impacted and displaced intra-articular fracture of the dista l radius and nondisplaced fracture of the ulnar styloid. No suspicious bony lesions. Soft tissues: No suspicious soft tissue calcifications or masses. IMPRESSION: Stable appearance of comminuted, impacted and displaced intra-articular fracture of the distal radius and nondisplaced fracture of the ulnar styloid. Reviewed by: Ramsey Card MD on 09/07/2023 3:16 PM PST Approved by: Ramsey Card MD on 09/07/2023 3:16 PM PST Station ID: [id number]
== END 2023-09-07 23:59 | disposition home or self-care (01) ==
LOC: DI.WOS 08:00
PROVIDERS: ATTEND Orthopaedic Surgery
DX: S52.571D Other intraarticular fracture of lower end of right radius, subsequent encounter for closed fracture with routine healing (principal); S52.614D Nondisplaced fracture of right ulna styloid process, subsequent encounter for closed fracture with routine healing

== ENCOUNTER 2023-10-10 08:00 | Outpatient (CLI) | payer MEDICARE, OTHER ==
--- NOTE | 2023-10-10 16:21 | XRAY Report ---
PROCEDURE: Wrist 3 View RT INDICATIONS: RIGHT WRIST FRACTURE TECHNIQUE: 3 views of the wrist were acquired. COMPARISON: 09/07/2023 FINDINGS: Bones: Stable alignment of the impacted, angulated radial styloid fracture, with mild bone remodelin g. Stable nondisplaced ulnar styloid fracture. Soft tissues: No suspicious soft tissue calcifications or masses. IMPRESSION: Stable alignment of the wrist fractures, with slight interval healing of the radial styloid fracture. Reviewed by: Jonathan Ramsey MD on 10/10/2023 4:19 PM PDT Approved by: Jonathan Ramsey MD on 10/10/2023 4:19 PM PDT Station ID: [id number]
== END 2023-10-10 23:59 | disposition home or self-care (01) ==
LOC: DI.WOS 08:00
PROVIDERS: ATTEND Orthopaedic Surgery
DX: S52.531D Colles' fracture of right radius, subsequent encounter for closed fracture with routine healing (principal)

== ENCOUNTER 2024-01-17 10:36 | Outpatient (CLI) | payer MEDICARE, OTHER ==
--- NOTE | 2024-01-17 11:41 | Sleep Patient Instructions ---
Sleep Center Visit Summary - Patient Visit Information Reason for Visit: Initial consultation - Patient Instructions Additional Instructions: You were seen to re-establish care for your sleep apnea. You will continue with CPAP therapy with pressure set at 7 cmH2O. A supply prescription to set up with a new CPAP supplier. I have added an order to update your PAP machine. Please call the office to schedule a compliance follow up once you get your new device. We encourage you to continue to try to lose weight. Please follow up with the sleep care office one month after obtaining new device. - Clinic Information Contact: [facility] [address] [place] [address] [email or web address] T: [phone]
--- NOTE | 2024-01-17 11:46 | SLEEP CARE CONSULTATION ---
Information from patient questionnaire entered by Alyssa Muñoz. I have reviewed and concur with the information entered by Alyssa Muñoz. This document represents the service I personally performed and the decisions made by me, Milagro Win ARNP. History of Present Illness Service Date and Time: 01/17/2024 1036 Reason for Visit: New patient, sleep apnea on CPAP therapy, Re-establish care Chief Complaint: reports: Other (UPDATE SUPPLIES) Usual bedtime: 2300 Time it takes to fall asleep: 5MINS Snores at night: No Observed to quit breathing while asleep: Yes Number of times waking at night: 1 Reasons for waking at night: reports: Other (UNKNOWN) Toss, Turn, or Twitch while sleeping: No Recalls having dreams: Yes Usually gets out of bed at: 0730 Feels refreshed in the morning: Yes Morning headache: No Sleepy or fatigued during the day: Yes Ever fallen asleep while driving: No Takes day naps: No Year and Where: August 09 at [facility] Type of Sleep Study: Polysomnography Additional HPI information: ALEXEI KIRK was previsouly diagnosed to have moderate, AHI 26.9, obstructive sleep apnea-hypopnea syndrome in PSG date 08/09/2015 at [facility] and comes in today to re-establish care for CPAP therapy. - Parasomnia Symptoms Ever been unable to move upon waking from sleep: No Walks in sleep: No Talks in sleep: No Ever acted out dreams in sleep: No Ever felt weak in the knees when startled or emotional: No Bothered by creepy, crawly, restless sensations in legs: No Problems with memory or concentration: No CPAP Compliance Data - Data Reviewed with Patient Average duration of nightly device use: 8 hours 12 minutes Compliance rate %: 85.6 (07/21/2023-01/16/2024; 158/180 days used) Current pressure setting (cmH2O): 7 Average residual AHI: 2.3 Central apnea: 0.2 Obstructive apnea: 1.7 Average large leak: 15 mins 16 secs Compliance data discussion: She has a Resp[employer]ics REMstar machine that was obtained in 2015. She has not gotten supplies for several years. She has been using an old Dreamwear nasal cushion that was patched together. Subjective Patient concerns: reports: mask discomfort (needs replacement supplies, very worn out), air blowing in eyes, mask leak noise. denies: aerophagia, condensation in mask/hose, nasal congestion, dry mouth, nose, throat, epistaxis Observed to snore while using device: No Current pressure setting perceived as: comfortable On therapy, patient: reports: sleeping better, awakening more refreshed, being more awake and alert during the day, more rested overall. denies: drowsiness while driving Initial [place] Sleepiness Scale score: 7 (01/15/24) Past Medical History Past Medical History: reports: Hypertension, Hypothyroidism, Depression, GERD, Other (GLAUCOMA) Social History The patient's occupation is a RE. Patient is / and lives in . Have you smoked in the past 12 months: No Cigarettes per day (20/pack): 20 Years of smokin Quit date: 1961 Smoking Pack Years: 8.0 Alcohol use: Yes Alcohol amount and frequency: 1 DRINK 2-3X WEEK Caffeine use: Yes Caffeine amount and frequency: 2-3 CUPS COFFEE DAILY Family History Family history of sleep disordered breathing: No Allergies and Home Medications Known drug allergies: No Drug allergies reviewed: Yes Home medication list reviewed: Yes (as listed) Allergy and home medication list: Allergies No Known Drug Allergies Allergy (Verified 01/15/24 10:40) Review of Systems Cardiovascular: reports: high blood pressure Gastrointestinal: reports: heartburn Urinary: reports: incontinence, frequency Psychiatric: reports: depression Ear/Nose/Throat: reports: wisdom teeth removed. denies: tonsillectomy Endocrine: reports: thyroid disease Musculoskeletal: reports: back pain Immunologic: reports: sneezing Physical Exam Vital signs obtained and entered by: ALYSSA Miller MA Blood Pressure: 159/77 (LEFT ARM) Cuff size: regular Heart Rate: 68 O2 Saturation: 100 Height: 5 ft 5 in Weight: 177 lb Body Mass Index: 29.4 BMI Classification: Overweight Neck circumference: 16 Heart: regular rate and rhythm Lungs: clear bilaterally Impression and Plan 1. Obstructive Sleep Apnea-Hypopnea Syndrome, moderate, with good treatment compliance and good apnea control. On CPAP therapy, the patient has better sleep quality and is more rested overall. She has significant improvement of her sleep apnea with her CPAP therapy. She has not been able to get the supplies for years and brought in a patch together nasal cushion mask. I supplied her with a Dream[employer]ear nasal cushion mask that she can use until she is able to replace her supplies. Her CPAP was last updated in 2016. She needs a new DME supplier. She says her CPAP works okay but occasionally will do some "funny" things. The patients CPAP is over 5 years old and of reasonable use. Thus, the CPAP will be updated. A DWO prescription will be made. Compliance guidelines for new device and follow up discussed. Patient's apnea severity and rationale for treatment to reduce apnea, improve sleep quality and reduce cardiovascular and cerebrovascular events was reviewed. I also reviewed the benefit of consistent device use of CPAP for hypertension, arrhythmia, depression. 2. Overweight, unspecified. Currently patients BMI is 29.4. Obesity increases the risk of apnea, CPAP pressure requirements and overall health risks especially cardiovascular and diabetes. Thus patient is advised to lose weight. * Continue auto CPAP pressure at 7 cmH2O * Transfer DME * Update machine * Update supply prescription * Notify me if snoring with mask or feeling that the pressure is too much or too little * Attempt to lose weight * Call this office if any problems using CPAP * Return for follow up one month after obtaining new device, or sooner if concerns arise Continue with device pressure at (cmH2O): 7 Mask provided: Yes Counseling Topics: Weight loss health impact Prescriptions: CPAP, Device supplies Plan: update machine and compliance follow up Visit Type: In Office Time Spent with Patient (minutes): 33 Provider Statement: I spent 100% of the Face to Face Visit with the patient with greater than 50% spent counseling the patient and coordination of care.
[2024-01-17 11:51] VITALS: BP 159/77; O2SAT 100
== END 2024-01-17 10:37 | disposition home or self-care (01) ==
LOC: SC 10:36
PROVIDERS: ATTEND Nurse Practitioner Family
DX: G47.33 Obstructive sleep apnea (adult) (pediatric) (principal); E66.3 Overweight; Z68.29 Body mass index [BMI] 29.0-29.9, adult; Z87.891 Personal history of nicotine dependence
CPT/HCPCS: 99203; G0463; 99212

== ENCOUNTER 2024-04-10 14:03 | Outpatient (CLI) | payer MEDICARE, OTHER ==
--- NOTE | 2024-04-10 14:37 | Sleep Patient Instructions ---
Sleep Center Visit Summary - Patient Visit Information Reason for Visit: First compliance with new device follow-up - Patient Instructions Additional Instructions: You were here for follow up of CPAP therapy. You will be continued on CPAP therapy with pressure at 7 cmH2O. You should follow up with sleep care in 12 months. You may contact us sooner for any questions or concerns. - Clinic Information Contact: [facility] [address] [place] [address] [email or web address] T: [phone]
--- NOTE | 2024-04-10 14:39 | SLEEP CARE CONSULTATION ---
Information from patient questionnaire entered by Alyssa Muñoz. I have reviewed and concur with the information entered by Alyssa Muñoz. This document represents the service I personally performed and the decisions made by , Milagro Win ARNP. History of Present Illness Service Date and Time: 04/10/2024 1403 Previous diagnosis: Moderate, Obstructive Sleep Apnea-Hypopnea Syndrome AHI: 26.9 (08/09/2015) Reason for follow up: first compliance after device update Equipment type: CPAP (RESMED Airsense 11 SET UP 02/23/24) Equipment obtained from: Other ([facility]; getting supplies) Mask style: Nasal Backup mask available: Yes (old mask) Last cushion change: 6 weeks Year and Where: August 09 at [facility] Type of Sleep Study: Polysomnography HPI additional information: ALEXEI KIRK was diagnosed to have moderate, AHI 26.9, obstructive sleep apnea-hypopnea syndrome and returned today for CPAP therapy first compliance after updating device follow-up. Sleep Study - Results Type of Sleep Study: Polysomnography Year and Where: August 09 at [facility] CPAP Compliance Data - Data Reviewed with Patient Average duration of nightly device use: 8 HRS 7 MINS Compliance rate %: 100 (02/23/24-03/23/24; 30/ days used) Current pressure setting (cmH2O): 7 Average residual AHI: 0.6 Central apnea: 0 Obstructive apnea: 0.2 Hypopnea: 0.2 Average large leak: 3.5 L/min Subjective Patient concerns: denies: aerophagia, mask discomfort, air blowing in eyes, mask leak noise, condensation in mask/hose, nasal congestion, dry mouth, nose, throat, epistaxis Observed to snore while using device: No Current pressure setting perceived as: comfortable On therapy, patient: reports: sleeping better, awakening more refreshed, being more awake and alert during the day, more rested overall. denies: drowsiness while driving Initial [place] Sleepiness Scale score: 7 (01/15/24) Current [place] Sleepiness Scale score: 6 (04/10/24) Allergies and Home Medications Known drug allergies: No Drug allergies reviewed: Yes Home medication list reviewed: Yes (no changes) Allergy and home medication list: Allergies No Known Drug Allergies Allergy (Verified 04/10/24 14:04) Review of Systems Review of systems same as previous: Yes (NO CHANGE) Physical Exam Vital signs obtained and entered by: ALYSSA Miller MA Blood Pressure: 162/81 (RIGHT ARM) Cuff size: regular Heart Rate: 59 O2 Saturation: 96 Height: 5 ft 5 in Weight: 176 lb 12.8 oz Body Mass Index: 29.4 BMI Classification: Overweight Impression and Plan 1. Obstructive Sleep Apnea-Hypopnea Syndrome, moderate, with good treatment compliance and good apnea control. On CPAP therapy, the patient has better sleep quality and is more rested overall. Patient's apnea severity and rationale for treatment to reduce apnea, improve sleep quality and reduce cardiovascular and cerebrovascular events was reviewed. I also reviewed the benefit of consistent device use of CPAP for hypertension, gastric reflux, depression. She voiced understanding. We will see her next year for her follow up. 2. Overweight, unspecified. Currently patients BMI is 29.4. Obesity increases the risk of apnea, CPAP pressure requirements and overall health risks especially cardiovascular and diabetes. Thus patient is advised to lose weight. * Continue CPAP pressure at 7 cmH2O * Notify me if snoring with mask or feeling that the pressure is too much or too little * Attempt to lose weight * Call this office if any problems using CPAP * Return for follow up in 12 months, or sooner if concerns arise Counseling Topics: Spare mask, Weight loss health impact Visit Type: In Office Time Spent with Patient (minutes): 11 Provider Statement: I spent 100% of the Face to Face Visit with the patient with greater than 50% spent counseling the patient and coordination of care.
[2024-04-10 14:48] VITALS: BP 162/81; O2SAT 96
== END 2024-04-10 14:04 | disposition home or self-care (01) ==
LOC: SC 14:03
PROVIDERS: ATTEND Nurse Practitioner Family
DX: G47.33 Obstructive sleep apnea (adult) (pediatric) (principal); E66.3 Overweight; Z68.29 Body mass index [BMI] 29.0-29.9, adult
CPT/HCPCS: 99212; G0463